=== PATIENT | male | born 1985 | race Caucasian/White ===

== ENCOUNTER 2024-04-12 01:05 | Emergency (ER) | payer OTHER ==
[~2024-04-12] VITALS: Ht 167.6 cm; Wt 86.2 kg
[2024-04-12] MEDS ORDERED: SULF1TAB48 PO (01:29)
[2024-04-12] MEDS ORDERED: CEPH500T PO (01:29)
[2024-04-12] MEDS ORDERED: CEFTRIAXONE 1 G VIAL ONE (01:34)
[2024-04-12] MEDS ORDERED: LIDOCAINE HCL 1% 20 ML VIAL ONE (01:34)
[2024-04-12] MEDS ORDERED: SULFAMETH/TRIMETH 800/160 MG TABLET ONE (01:35)
[2024-04-12] MEDS ORDERED: TDAP DIPH,PERTUSS,TET VAC/PF 0.5 ML DISP.SYRIN IM ONE (01:36)
[2024-04-12] MEDS: CEFTRIAXONE 1 G VIAL IM ONE (01:49)
[2024-04-12] MEDS: SULFAMETH/TRIMETH 800/160 MG TABLET PO ONE (01:49)
[2024-04-12] MEDS: TDAP DIPH,PERTUSS,TET VAC/PF 0.5 ML DISP.SYRIN IM ONE (01:52)
[2024-04-12 02:02] VITALS: BP 145/88; TEMP 98.3; O2SAT 98
== END 2024-04-12 02:00 | disposition home or self-care (01) ==
LOC: ER 01:16
DX: L03.116 Cellulitis of left lower limb (principal); E11.9 Type 2 diabetes mellitus without complications; F12.90 Cannabis use, unspecified, uncomplicated; Z79.899 Other long term (current) drug therapy
CPT/HCPCS: 99284; 90715; 96372; 90471; J0696; J3490; A4606; A4663

== ENCOUNTER 2024-04-15 01:11 | Emergency (ER) | payer OTHER ==
[~2024-04-15] VITALS: Ht 167.6 cm; Wt 86.2 kg
[~2024-04-15 01:11] MED LIST: CEPH500T PO; SULF1TAB48 PO
[2024-04-15] MEDS ORDERED: HYDROCODONE/APAP 5-325MG TABLET ONE (02:06)
[2024-04-15] MEDS: HYDROCODONE/APAP 5-325MG TABLET PO ONE (02:07)
[2024-04-15 02:46] LABS: BASOPHILS # (AUTO) 0.1 K/UL (0.0-0.2); BASOPHILS % (AUTO) 0.6 % (0.0-2.0); EOSINOPHILS # (AUTO) 0.3 K/uL (0.0-0.7); EOSINOPHILS % (AUTO) 2.1 % (0.0-7.0); HEMATOCRIT 31.9 % (36.7-47.1); HEMOGLOBIN 10.8 g/dL (12.5-16.3); LYMPHOCYTES # (AUTO) 2.7 K/uL (0.8-4.8); LYMPHOCYTES % (AUTO) 22.1 % (20.5-51.5); MEAN CORPUSCULAR HEMOGLOBIN 29.9 uug (23.8-33.4); MEAN CORPUSCULAR HGB CONC 34 g/dL (32.5-36.3); MEAN CORPUSCULAR VOLUME 88.6 fL (73.0-96.2); MONOCYTES # (AUTO) 1.2 K/uL (0.1-1.30); MONOCYTES % (AUTO) 9.6 % (0.0-11.0); NEUTROPHILS % (AUTO) 65.6 % (38.5-71.5); PLATELET COUNT (AUTO) 336 K/uL (152-348); RED CELL DISTRIBUTION WIDTH 12.2 % (12.1-16.2); WHITE BLOOD COUNT (AUTO) 12.1 K/uL (3.6-10.2)
[2024-04-15 02:50] LABS: DIFFERENTIAL COMMENT 1
[2024-04-15 02:59] LABS: ALBUMIN 2.9 g/dL (3.4-5.0); BILIRUBIN,TOTAL 0.3 mg/dL (0.2-1.0); CALCIUM 9.1 mg/dL (8.5-10.1); CREATININE 1.8 mg/dL (0.6-1.3); POTASSIUM 4.8 mmol/L (3.5-5.1); TOTAL PROTEIN, SERUM 7.6 g/dL (6.4-8.2)
[2024-04-15 03:02] LABS: C-REACTIVE PROTEIN 14.32 mg/dL (0.00-0.30)
[2024-04-15 04:21] VITALS: BP 176/100; O2SAT 99
== END 2024-04-15 04:21 | disposition home or self-care (01) ==
LOC: ER 01:16
DX: L03.116 Cellulitis of left lower limb (principal); E88.09 Other disorders of plasma-protein metabolism, not elsewhere classified; E11.65 Type 2 diabetes mellitus with hyperglycemia; R60.0 Localized edema; N17.9 Acute kidney failure, unspecified; R03.0 Elevated blood-pressure reading, without diagnosis of hypertension; D64.9 Anemia, unspecified; Z79.899 Other long term (current) drug therapy
CPT/HCPCS: 36415; 85025; 85730; 86140; A4606; A4663